=== PATIENT | female | born 1995 | race African-American/Black ===

== ENCOUNTER 2016-09-23 00:49 | Emergency (ER) | payer OTHER ==
[~2016-09-23] VITALS: Ht 170.2 cm; Wt 88.5 kg
[~2016-09-23 00:49] MED LIST: AUGMENTIN PO; FLEXERIL10 MG PO; IBUPROFEN800 MG PO; MOTRIN50 MG PO; PERCOCET 51 UDTAB 5/ PO
[2016-09-23] MEDS ORDERED: ANTIBIOTICS (01:06)
[2016-09-23] MEDS ORDERED: PAIN MED (01:07)
[2016-09-23 01:41] LABS: URINE SOURCE CLEAN CATCH
[2016-09-23 01:44] LABS: URINE APPEARANCE HAZY; URINE BLOOD 3+ (NEG); URINE COLOR YELLOW; URINE GLUCOSE NEG (NORM); URINE KETONE TRACE (NEG); URINE LEUKOCYTE ESTERASE TRACE (NEG); URINE NITRATE NEG (NEG); URINE PROTEIN 1+ (NEG); URINE SPECIFIC GRAVITY >=1.030 (1.003-1.035)
[2016-09-23 01:45] LABS: MICRO INDICATED? YES; URINE BILIRUBIN NEG (NEG)
[2016-09-23 01:47] LABS: CULTURE INDICATED? NO; URINE BACTERIA NEG (NEG); URINE MUCUS PRESENT; URINE RBC 100-200 /[HPF] (0-2); URINE SQUAMOUS EPITHELIAL CELL OCCAS /[HPF]; URINE TRANSITIONAL EPI CELLS FEW /[HPF]; URINE WBC 0-2 /[HPF] (0-5)
== END 2016-09-23 02:40 | disposition home or self-care (01) ==
LOC: SED 00:49
PROVIDERS: Emergency Medicine
DX: N94.6 Dysmenorrhea, unspecified (principal); J45.909 Unspecified asthma, uncomplicated; F17.200 Nicotine dependence, unspecified, uncomplicated
CPT/HCPCS: 81003; 84703; 99284